=== PATIENT | female | born 1960 | race African-American/Black ===

== ENCOUNTER 2016-09-12 16:22 | Emergency (ER) | payer BC ==
[~2016-09-12 16:22] MED LIST: ALEVE PO; ASPIRIN81 M2 PO; AUGMENTIN875 M1 PO; CETIRIZINE HCL10 MG PO; CHANTIX PO; EFFIENT10 MG PO; FAMOTIDINE20 M1 PO; FLEXERIL10 MG PO; FLONASE 0.05% N16 G1; FLONASE16 GM; IBUPROFEN600 MG PO; LORTAB 10/500 T1 TAB PO; MEDROL DOSEPAK4 MG PO; NITROGLYGERIN0.4 MG; NORCO 10/325 TA1 TAB PO; PROZAC10 M1 PO; SINGULAIR PO; SYMBICORT80 INH; TRAMADOL HCL50 M1 PO; TUDORZA PRESS400 MCG IH; ULTRAM PO; VITAMIN D5000 UNIT PO; WELLBUTRIN PO; ZANTAC150 M1 PO; ZYRTEC10 M2 PO
== END 2016-09-12 18:30 | disposition home or self-care (01) ==
LOC: CFTX 16:22 → CED 16:22 → CFTX 17:33
DX: L27.0 Generalized skin eruption due to drugs and medicaments taken internally (principal); T37.0X5A Adverse effect of sulfonamides, initial encounter; J30.9 Allergic rhinitis, unspecified; K21.9 Gastro-esophageal reflux disease without esophagitis; F32.9 Major depressive disorder, single episode, unspecified; Z88.5 Allergy status to narcotic agent; Z88.4 Allergy status to anesthetic agent; Z91.040 Latex allergy status; Z91.041 Radiographic dye allergy status; Y92.009 Unspecified place in unspecified non-institutional (private) residence as the place of occurrence of the external cause
CPT/HCPCS: 94640; 99282